=== PATIENT | male | born 1945 | race Two or more races ===

== ENCOUNTER 2024-08-24 06:00 | Day surgery (SDC) | payer OTHER, SELFPAY ==
--- NOTE | 2024-08-21 06:21 | EKG_ITS ---
[facility] Test Date: 2024-08-21 Pat Name: JASVIR PORTER Department: Room: - Gender: Male Hospice Physician: STUDENT : 1945 Requested By: Levi Jose Order Number: [id number] Reading MD: Levi Jose Measurements Intervals [place] Rate: 71 P: 6 NC: 110 QRS: 3 QRSD: 83 T: 9 QT: 381 QTc: 415 Interpretive Statements SINUS RHYTHM WITH SHORT NC INTERVAL No previous ECG available for comparison /store/S0/[id number]/ecg/[id number].pdf
[2024-08-21 09:32] VITALS: BMI 25.2
[2024-08-21 10:02] LABS: Collection Type, Urine Clean Catch
[2024-08-21 10:41] LABS: Basophils % (Auto) 1 % (0-2.5); Eosinophils % (Auto) 1 % (0-10); Hematocrit 38.2 % (41.0-53.0); Hemoglobin 13.2 g/dL (13.5-16.0); Immature Granulocytes % (Auto) 0 % (0-0); Immature Granulocytes Auto 0.02 Thou/mm3 (0.00-0.00); Lymphocytes # (Auto) 1.4 Thou/mm3 (1.0-4.8); Lymphocytes % (Auto) 24 % (10-50); Mean Corpuscular HGB Conc 34.6 g/dl (31.0-37.0); Mean Corpuscular Hemoglobin 32.7 pg (25.0-35.0); Mean Corpuscular Volume 95 fL (80-100); Monocytes # (Auto) 0.5 Thou/mm3 (0.0-0.8); Monocytes % (Auto) 9 % (0-12); Neutrophils # (Auto) 3.8 Thou/mm3 (1.8-7.7); Neutrophils % (Auto) 66 % (37-80); Nucleated Red Blood Cell % 0 /100 WBC (0); Platelet Count 173 Thou/mm3 (140-440); RDW Standard Deviation 42.9 fL (35.1-43.9); Red Blood Count 4.04 Miln/mm3 (4.50-5.90); White Blood Count 5.7 Thou/mm3 (3.8-10.6)
[2024-08-21 10:49] LABS: Bacteria,Urine Rare; Bilirubin,Urine Negative (Negative); Blood,Urine 1+ (Negative); Color,Urine Yellow (Lt Yel-Yel); Glucose, Urine Negative (Negative); Ketones,Urine Negative (Negative); Leukocyte Esterase,Urine Positive (Negative); Nitrite,Urine Negative (Negative); Protein,Urine 1+ (Neg - Trace); RBC,Urine 36 /hpf (0-3); Squamous Epithelial Cell,Urine 1 /hpf (0-5); Urobilinogen,Urine Negative mg/dL (0.0-1.0); WBC,Urine 885 /hpf (0-5)
[2024-08-21 10:55] LABS: Alanine Aminotransferase 10 U/L (10-49); Albumin, Serum 4.8 gm/dL (3.4-4.8); Albumin/Globulin Ratio 2.2 (1.2-2.2); Alkaline Phosphatase 130 U/L (46-116); Anion Gap 6 (7-16); Aspartate Amino Transferase 19 U/L (0-34); BUN/Creatinine Ratio 14 Ratio (12-20); Bilirubin,Total 0.5 mg/dL (0.3-1.2); Blood Urea Nitrogen 11 mg/dL (9-23); Calcium 9.6 mg/dL (8.3-10.6); Calcium (Corrected) 9.6 mg/dL (8.5-10.1); Carbon Dioxide 30.8 mMol/L (20.0-31.0); Chloride 104 mMol/L (98-107); Creatinine (Component) 0.8 mg/dL (0.6-1.3); Estimated Creatinine Clearance 62.2 mL/min (>60); Globulin 2.2 gm/dL (2.3-3.5); Glucose 121 mg/dL (74-106); Osmolality,Calculated 281 (275-295); Sodium 141 mMol/L (136-145); eGFR > 60 See Note
[2024-08-21 11:14] LABS: Clarity,Urine Cloudy (Clear/Hazy)
--- NOTE | 2024-08-23 15:39 | ESHP_ITS ---
RE: JASVIR PORTER : 1945 DATE OF ADMISSION: 08/24/2024 HISTORY OF PRESENT ILLNESS: The patient is a 79-year-old male with elevated PSA, which is 8 and has a swollen scrotum. He has nocturia x3, slow urinary stream, previous surgery, cholecystectomy. He has 6 children. No history of diabetes mellitus. No history of hypertension. ALLERGIES: NONE KNOWN. MEDICATIONS: He takes finasteride, Avodart, and tamsulosin. PHYSICAL EXAMINATION: HEENT: Normal. NECK: Supple. LUNGS: Clear. CARDIOVASCULAR: Heart sounds are normal. ABDOMEN: Soft without any organomegaly. No guarding. No rigidity. EXTREMITIES: Normal. GENITOURINARY: Phallus normal. Testes are down in the scrotum. There is a large left scrotal hydrocele 5-6 inches in size. Right testis is normal. There is no inguinal hernia. RECTAL: Revealed moderately enlarged prostate with some hard nodules on the right lobe. IMPRESSION: Prostatism, prostatic obstruction, elevated PSA of 8, and left scrotal hydrocele. PLAN: Cystoscopy and transrectal prostatic ultrasound with ultrasound-guided prostatic needle biopsy. Planned procedure, risks and complications have been discussed with the patient. The patient has understood them and agreed to proceed. Thank you very much. DT: 12:48:50 TT: 15:38:00 Ref: [id number] - TID: [id number]
[2024-08-24] VITALS (11 sets, daily range): BP systolic 90–132; BP diastolic 64–79; PULSE 66–85; RESP 14–21; TEMP 36.2–36.4; O2SAT 95–100; BMI 24.7
[2024-08-24] MEDS: RINGERS LACTATED 1000 ML 1,000 ML 20 ML IV (07:58)
--- NOTE | 2024-08-24 09:19 | SUR.PHASEII ---
pt received from OR in recovery bay 5. pt awake and alert, breathing unlabored on room air. v/s stable. report received from Sarwat CARVAJAL and Michael Montiel.
--- NOTE | 2024-08-24 09:30 | SUR.PHASEII ---
pt able to tolerate oral fluids without difficulty swallowing or nausea/vomiting.
--- NOTE | 2024-08-24 10:15 | SUR.PHASEII ---
pt awake and alert, breathing unlabored on room air. v/s stable. pt dressed and waiting to urinate before discharge.
--- NOTE | 2024-08-24 12:35 | SUR.PHASEII ---
pt awake and alert, breathing unlabored on room air. v/s stable. pt olivas catheter with leg bag in place, draining dark red urine, Dr. Jose aware and ok with discharge. pt informed to head to ER if any complications with catheter arise. pt able to ambulate to wheelchair with steady gait. d/c instructions given with s/o in room, all questions answered. pt d/c via wheelchair with all belongings.
--- NOTE | 2024-08-24 12:43 | SUR.PHASEII ---
pt attempted to urinate, large blood clots coming out. Dr. Jose informed. Dr. Jose instructed this Rn to place a olivas catheter with a leg bag and discharge home and inform pt to follow up at his clinic on Tuesday.
--- NOTE | 2024-08-24 21:17 | ESOP_ITS ---
RE: JASVIR PORTER : 1945 DATE OF OPERATION: 08/24/2024 PREOPERATIVE DIAGNOSES: Prostatism, prostatic obstruction, and elevated PSA. POSTOPERATIVE DIAGNOSES: Prostatism, prostatic obstruction, and elevated PSA. PROCEDURE PERFORMED: Cystoscopy, urethral dilatation, transrectal prostatic ultrasound with ultrasound-guided prostatic needle biopsy and insertion of the Vasquez catheter in the recovery room. ANESTHESIA: Monitored anesthesia. INDICATION: The patient is a 79-year-old gentleman with history of prostatism, nocturia x3, slowing urinary stream and elevated PSA of 8. The patient's rectal examination revealed a moderately sized prostate with some firmness in the right prostatic lobe. The patient also has a large left scrotal hydrocele. The patient was scheduled to have cystoscopy and transrectal prostatic ultrasound with ultrasound-guided prostatic needle biopsy in view of his prostatism and elevated PSA of 8. Planned procedure, risks and complications have been discussed with the patient. The patient understood them and agreed to proceed. DESCRIPTION OF PROCEDURE: After the patient was brought to the operating table, under adequate monitored anesthesia in dorsal lithotomy position, parts were prepped and draped in the usual fashion. Cystoscopy was then carried out, which revealed adequate urethral meatus, normal-appearing urethra, moderately enlarged bilobed prostate with some median lobe enlargement. Scope was introduced into the bladder. Residual urine was approximately 5 ounces yellow and was sent for culture and sensitivity examination. The patient had somewhat vascular prostate. The bladder appeared to be moderately trabeculated with small bladder diverticula. There were no intravesical stones or tumors. Ureteral orifices were found to be normal in position and appearance. The scope was withdrawn. The urethra was dilated. The patient was then turned in the left lateral position. Transrectal prostatic ultrasound was carried out. Biopsies were obtained from both lobes using ultrasound guidance. Prostatic volume was measured at 51.1 cubic cm. Biopsies were obtained from both lobes using ultrasound guidance. The patient tolerated the entire procedure well and left the room in good condition. In the recovery room, the patient had some oozing of blood from the urethra and had a little bit hard time to urinate, so a 16-Lao Vasquez catheter was inserted and was left in place. The patient will go home with Vasquez catheter to leg [facility] and will be seen in the office next week on Tuesday at 2 o'clock. DT: 11:24:42 TT: 21:15:00 Ref: [id number] - TID: [id number]
== END 2024-08-24 12:35 | disposition home or self-care (01) ==
PROVIDERS: Anesthesiology; PCP Student in an Organized Health Care Education/Training Program; Referring Provider Surgery; Visit Provider Surgery
PROC: 0TJB8ZZ Inspection of Bladder, Via Natural or Artificial Opening Endoscopic (ICD-10-PCS; CPT 52000; principal; 2024-08-24 08:30)
PROC: (CPT 55700; 2024-08-24 08:30)
DX: N43.3 Hydrocele, unspecified (principal); N40.1 Benign prostatic hyperplasia with lower urinary tract symptoms; Z01.810 Encounter for preprocedural cardiovascular examination; R35.1 Nocturia
CPT/HCPCS: 52281; 55700; 36415; 76942; 80053; 81001; 85025; 87086; 93005; A4217; A4649; J0694; J2704; J7120

== ENCOUNTER 2024-12-21 05:45 | Day surgery (SDC) | payer OTHER, MEDICAID, SELFPAY ==
[2024-12-18 09:49] VITALS: BMI 24.3
[2024-12-18 10:09] LABS: Collection Type, Urine Clean Catch
[2024-12-18 11:08] LABS: Bilirubin,Urine Negative (Negative); Blood,Urine Negative (Negative); Clarity,Urine Clear (Clear/Hazy); Color,Urine Colorless (Lt Yel-Yel); Glucose, Urine Negative (Negative); Ketones,Urine Negative (Negative); Leukocyte Esterase,Urine Negative (Negative); Nitrite,Urine Negative (Negative); Protein,Urine Negative (Neg - Trace); RBC,Urine < 1 /hpf (0-3); Specific Gravity,Urine 1.008 (1.001-1.035); Squamous Epithelial Cell,Urine < 1 /hpf (0-5); Urobilinogen,Urine Negative mg/dL (0.0-1.0); WBC,Urine 1 /hpf (0-5)
[2024-12-18 11:09] LABS: Basophils % (Auto) 1 % (0-2.5); Eosinophils % (Auto) 1 % (0-10); Hematocrit 36.7 % (41.0-53.0); Hemoglobin 12.6 g/dL (13.5-16.0); Immature Granulocytes % (Auto) 1 % (0-0); Immature Granulocytes Auto 0.02 Thou/mm3 (0.00-0.00); Lymphocytes # (Auto) 0.8 Thou/mm3 (1.0-4.8); Lymphocytes % (Auto) 21 % (10-50); Mean Corpuscular HGB Conc 34.3 g/dl (31.0-37.0); Mean Corpuscular Hemoglobin 32.6 pg (25.0-35.0); Mean Corpuscular Volume 95 fL (80-100); Monocytes # (Auto) 0.5 Thou/mm3 (0.0-0.8); Monocytes % (Auto) 11 % (0-12); Neutrophils # (Auto) 2.6 Thou/mm3 (1.8-7.7); Neutrophils % (Auto) 66 % (37-80); Nucleated Red Blood Cell % 0 /100 WBC (0); Platelet Count 169 Thou/mm3 (140-440); RDW Standard Deviation 44.1 fL (35.1-43.9); Red Blood Count 3.87 Miln/mm3 (4.50-5.90)
[2024-12-18 11:40] LABS: Alanine Aminotransferase 11 U/L (10-49); Albumin, Serum 4.3 gm/dL (3.4-4.8); Albumin/Globulin Ratio 1.8 (1.2-2.2); Alkaline Phosphatase 125 U/L (46-116); Anion Gap 6 (7-16); Aspartate Amino Transferase 20 U/L (0-34); BUN/Creatinine Ratio 13 Ratio (12-20); Bilirubin,Total 0.6 mg/dL (0.3-1.2); Blood Urea Nitrogen 12 mg/dL (9-23); Calcium 9.3 mg/dL (8.3-10.6); Calcium (Corrected) 9.3 mg/dL (8.5-10.1); Carbon Dioxide 29.1 mMol/L (20.0-31.0); Chloride 104 mMol/L (98-107); Creatinine (Component) 0.9 mg/dL (0.6-1.3); Estimated Creatinine Clearance 64.3 mL/min (>60); Globulin 2.4 gm/dL (2.3-3.5); Glucose 165 mg/dL (74-106); Osmolality,Calculated 281 (275-295); Potassium 4.3 mMol/L (3.4-5.1); Sodium 139 mMol/L (136-145); Total Protein 6.7 gm/dL (5.7-8.2); eGFR > 60 See Note
--- NOTE | 2024-12-20 12:02 | ESHP_ITS ---
RE: JASVIR PORTER : 1945 DATE OF ADMISSION: 12/21/2024 HISTORY OF PRESENT ILLNESS: The patient is a 79-year-old gentleman with a hydrocele. He has swollen scrotum. He has nocturia x3. Slow urinary stream. No blood in the urine. PAST SURGICAL HISTORY: Cholecystectomy. PAST MEDICAL HISTORY: No history of diabetes mellitus. No history of hypertension. SOCIAL HISTORY: He has 6 children. HOME MEDICATIONS: He takes, 1. Finasteride. 2. Avodart. 3. He was on tamsulosin before. ALLERGIES: NONE KNOWN. REVIEW OF SYSTEM: He has left-sided scrotal hydrocele. PHYSICAL EXAMINATION: ABDOMEN: Soft without any organomegaly. No guarding. No rigidity. EXTREMITIES: Normal. GENITOURINARY: Phallus is normal. Testes are down in scrotum. There is a left-sided scrotal hydrocele 5 to 6 inches in size. Right testis is normal. There are no hernias. RECTAL: Moderately enlarged smooth prostate. LABORATORY: He had a transrectal prostatic ultrasound and biopsy done. 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 He also has a left-sided scrotal swelling, which is 5 to 6 inches in size and typically represents left hydrocele. IMPRESSION: 1. Left scrotal hydrocele. 2. 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 PLAN: Left hydrocelectomy. The patient is being observed for his prostatic cancer, which is a grade 6 prostate cancer. Planned procedure, risks and complications of left hydrocelectomy have been discussed with the patient. The patient has understood them and agreed to proceed. DT: 10:50:17 TT: 12:00:00 Ref: [id number] - TID: [id number]
[2024-12-21] VITALS (8 sets, daily range): BP systolic 106–141; BP diastolic 64–85; PULSE 73–96; RESP 13–19; TEMP 36.1–36.4; O2SAT 98–100; BMI 24.5
[2024-12-21] MEDS: RINGERS LACTATED 1000 ML 1,000 ML 20 ML IV (06:51)
--- NOTE | 2024-12-21 09:26 | SUR.PHASEI ---
pt arrived to PACU via gurney drowsy but arouses to voice, respirations even and unlabored, dressing to left scrotum clean, dry, and intact with scrotal support in place, report from Zhane FITZGERALD, Khang IFTZGERALD, and Howard CARVAJAL
--- NOTE | 2024-12-21 09:41 | SUR.PHASEI ---
pt tolerating oral fluids without difficulty swallowing or n/v
--- NOTE | 2024-12-21 10:18 | ESOP_ITS ---
RE: JASVIR PORTER : 1945 DATE OF OPERATION: 12/21/2024 PREOPERATIVE DIAGNOSIS: Large left scrotal hydrocele. History of adenocarcinoma of the prostate, grade 3+3. POSTOPERATIVE DIAGNOSIS: Large left scrotal hydrocele. History of adenocarcinoma of the prostate, grade 3+3. PROCEDURE PERFORMED: Left hydrocelectomy, left spermatocelectomy, and excision and fulguration of the appendix of the left testis. ANESTHESIA: General. INDICATION: The patient is a 79-year-old gentleman with a very large left scrotal hydrocele 5-6 inches in size. He has been bothered with this and he wishes to have this excised. The patient has a history of adenocarcinoma of the prostate, grade 3+3=6 and he is being followed for the prostate cancer. Left hydrocelectomy was then planned. Planned procedure, risks, and complications have been discussed with the patient and his family. They have understood them and agreed to proceed. DESCRIPTION OF PROCEDURE: After the patient was brought to the operating table under adequate general anesthesia, given by Mr. Lawrence. He was placed in dorsal lithotomy position. Parts were prepped and draped in the usual fashion. Left vertical scrotal incision was then made approximately 6 cm long. Skin and subcutaneous tissues were incised. The patient had a large left scrotal hydrocele. Dissection was then carried out. Left hydrocele sac was dissected from surrounding structures and was brought out of the incision. The left hydrocele sac was then opened and was found to contain a large amount of yellow fluid approximately 200-300 mL. Partial excision of the left hydrocele sac was done. The patient also had a left scrotal spermatocele, which was excised. It was found to contain a yellowish jelly-like substance. The patient also had a prominent appendix of the left testis, which was excised and fulgurated. Complete hemostasis was obtained. The testis was put back in its position and the wound was closed in layers using 3-0 chromic gut sutures. Local anesthetic was injected at the site of the skin. Sterile dressing was then applied. The patient was then transferred to the recovery room in a satisfactory condition having tolerated the entire procedure well. Sponge count and needle count at the end of the procedure was found to be correct. Estimated blood loss was approximately 5 mL. DT: 09:35:13 TT: 10:17:00 Ref: [id number] - TID: [id number]
--- NOTE | 2024-12-21 10:35 | SUR.PHASEII ---
pt awake, alert, able to follow commands, respirations even and unlabored, dressing to left scrotum clean, dry, and intact with scrotal support in place, discharge instructions given with significant other Holly present using telephone nurse plastics [employer] ID#[id number], pt and Holly verbalize understanding, pt able to dress self and ambulate with steady gait to wheelchair, pt discharged via wheelchair with all belongings and copies of discharge paperwork.
== END 2024-12-21 10:35 | disposition home or self-care (01) ==
PROVIDERS: Anesthesiology; PCP Internal Medicine; Referring Provider Surgery; Visit Provider Surgery
PROC: (CPT 55040; principal; 2024-12-21 08:30)
DX: N43.3 Hydrocele, unspecified (principal); Z85.46 Personal history of malignant neoplasm of prostate; Z90.49 Acquired absence of other specified parts of digestive tract
CPT/HCPCS: 55040; 36415; 80053; 81001; 85025; A4217; A4649; J0690; J2250; J2704; J3010; J3490; J7120; L8330; A9270; J1596